=== PATIENT | female | born 1955 | race Caucasian/White ===

== ENCOUNTER 2018-10-20 09:58 | Emergency (ER) | payer SELFPAY ==
[2018-10-20] MEDS: ALPRAZOLAM 0.25 MG TAB PO (10:31)
[2018-10-20] MEDS: KETOROLAC 30 MG INJ IM (10:32)
[2018-10-20 11:01] LABS: ADD UMIC NO; UR ASCORBIC ACID NEGATIVE (NEGATIVE); UR BILIRUBIN (Dip) NEGATIVE (NEGATIVE); UR BLOOD (Dip) NEGATIVE (NEGATIVE); UR CLARITY CLEAR (CLEAR); UR COLOR STRAW (YELLOW); UR GLUCOSE (Dip) NEGATIVE (NEGATIVE); UR KETONES (Dip) NEGATIVE (NEGATIVE); UR LEUKOCYTE ESTERASE (Dip) NEGATIVE Leu/ul (NEGATIVE); UR NITRITE (Dip) NEGATIVE (NEGATIVE); UR SPECIFIC GRAVITY (Dip) 1.009 (1.003-1.030); UR TOTAL PROTEIN (Dip) NEGATIVE (NEGATIVE); UR UROBILINOGEN (Dip) NEGATIVE (NEGATIVE)
== END 2018-10-20 12:14 | disposition home or self-care (01) ==
LOC: E/R 09:58
DX: G44.209 Tension-type headache, unspecified, not intractable (principal); I10 Essential (primary) hypertension; R40.2142 Coma scale, eyes open, spontaneous, at arrival to emergency department; R40.2362 Coma scale, best motor response, obeys commands, at arrival to emergency department; R40.2252 Coma scale, best verbal response, oriented, at arrival to emergency department; F41.1 Generalized anxiety disorder; F43.0 Acute stress reaction
CPT/HCPCS: 81003; 96372; 99284-25